=== PATIENT | male | born 1990 | race Caucasian/White ===

== ENCOUNTER 2016-10-02 07:24 | Outpatient (CLI) | payer OTHER | END 2016-10-02 07:25 | disposition home or self-care (01) | DX: M54.9 Dorsalgia, unspecified (principal) ==

== ENCOUNTER 2016-12-13 21:05 | Emergency (ER) | payer MEDICAID ==
[2016-12-13 21:27] LABS: BILIRUBIN,URINE NEGATIVE (NEGATIVE)
[2016-12-13 21:28] LABS: UA CHARGE (STRIP ONLY) YES; UR CULTURE IF IND NOT INDICATED
--- NOTE | 2016-12-13 23:18 | ED Physician Documentation ---
PD HPI MALE - Stated complaint Stated Complaint: MALE - Chief complaint Chief Complaint: General - History obtained from History obtained from: Patient - History of Present Illness Timing - onset: How many days ago (3) Timing - duration: Days (3) Timing - details: Gradual onset Associated symptoms: Dysuria, Genital sore / lesion. No: Discharge PD HPI MALE CONTRIB FACTORS: Sexually active Recently seen: Not recently seen - Additional information Additional information: c/o 3 days of uncomfortable sore on penis and mild discomfort after urinating. He has had a similar lesion on his penis in the past which was successfully treated with "something for jock itch" (per patient). He presents with his girlfriend who has dysuria and is also registered as ED patient (they are both in same room). They have been sexually active, exclusively with each other, for years. Review of Systems Constitutional: denies: Fever : reports: Dysuria. denies: Frequency, Discharge, Testicular pain PD PAST MEDICAL HISTORY - Past Medical History Cardiovascular: None Respiratory: None Neuro: None Endocrine/Autoimmune: None GI: Crohn's disease - Past Surgical History Past Surgical History: No General: Colonoscopy - Present Medications Home Medications: Ambulatory Orders Medication Instructions Recorded Confirmed Clotrimazole 1 film TP BID #1 cream..g. 12/13/16 - Allergies Allergies/Adverse Reactions: Allergies Allergy/AdvReac Type Severity Reaction Status Date / Time hydrocodone [Hydrocodone] Allergy Hives Verified 12/13/16 21:12 - Social History Does the pt smoke?: No Smoking Status: Never smoker Does the pt drink ETOH?: Yes Does the pt have substance abuse?: Yes - Immunizations Immunizations are current?: Yes - POLST Patient has POLST: No PD ED PE NORMAL - Vitals Vital signs reviewed: Yes - General General: Alert and oriented X 3, No acute distress, Well developed/nourished PD ED PE EXPANDED - Male Male : Circumcised, Other (dorsal surface of penile shaft: small, linear fissures and mild erythema ). No: Discharge, Tenderness Results - Vitals Vitals: Vital Signs - 24 hr 12/13/16 12/14/16 21:07 00:05 Temperature 36.7 C 37.1 C Heart Rate 77 77 Respiratory 17 20 Rate Blood Pressure 127/72 111/65 O2 Saturation 100 98 Oxygen O2 Source Room air - Labs Labs: Laboratory Tests 12/13/16 21:20 Urine Color YELLOW Urine Clarity CLEAR Urine pH 7.0 Ur Specific [place] 1.015 Urine Protein NEGATIVE Urine Glucose (UA) NEGATIVE Urine Ketones NEGATIVE Urine Occult Blood NEGATIVE Urine Nitrite NEGATIVE Urine Bilirubin NEGATIVE Urine Urobilinogen 0.2 (NORMAL) Ur Leukocyte Esterase NEGATIVE Ur Microscopic Review NOT INDICATED Urine Culture Comments NOT INDICATED PD MEDICAL DECISION MAKING - ED course Complexity details: considered differential, d/w patient Departure - Departure Disposition: 01 Home, Self Care Clinical Impression: Tinea cruris Condition: Good Instructions: ED [place] Infec Fungal Follow-Up: Alayna Whitlock MD [Primary Care Provider] - Prescriptions: Clotrimazole 1 film TP BID #1 cream..g. Discharge Date/Time: 12/14/16 00:15
[2016-12-14 00:13] VITALS: BP 111/65
== END 2016-12-14 00:15 | disposition home or self-care (01) ==
LOC: ED 21:05
DX: B35.6 Tinea cruris (principal)
CPT/HCPCS: 81001; 81003; 87086; 87491; 87591; 99283

== ENCOUNTER 2016-12-21 00:45 | Emergency (ER) | payer MEDICAID | END 2016-12-21 02:43 | disposition home or self-care (01) | DX: J02.9 Acute pharyngitis, unspecified (principal); K50.90 Crohn's disease, unspecified, without complications ==

== ENCOUNTER 2017-04-20 21:16 | Emergency (ER) | payer MEDICAID ==
[2017-04-20 21:25] VITALS: BP 121/74
[2017-04-20] MEDS ORDERED: cefTRIAXone 1 GM VIAL IM STA (21:34)
[2017-04-20] MEDS ORDERED: TETANUS/DIPHTHERIA/PERTUSSIS 0.5 ML SYRINGE IM ONE (21:43)
[2017-04-20] MEDS ORDERED: cefTRIAXone 1 GM VIAL ONE (21:44)
[2017-04-20] MEDS ORDERED: LIDOCAINE 1% 2 ML VIAL ONE (21:44)
--- NOTE | 2017-04-20 21:45 | ED Physician Documentation ---
PD HPI ANIMAL BITE - Stated complaint Stated Complaint: CAT BITE RT FINGER - Chief complaint Chief Complaint: Wound - History obtained from History obtained from: Patient, Family - History of Present Illness Location of injury(ies): Right hand Details of the event: Cat, Wild animal, Immunization unknown Timing - onset: Enter time (1229), Today Timing - duration: Hours Timing - details: Abrupt onset, Still present Improved by: Rest Worsened by: Moving, Palpating Associated symptoms: Swelling, Discolored. No: Weakness, Numbness Similar symptoms before: Has not had sx before Recently seen: Not recently seen - Additional information Additional information: 26-year-old male with history of Crohn's disease who is not on a biologic has been bit by a feral cat today in the right hand. He has now some swelling and erythema and increased pain in the hand. Review of Systems Constitutional: denies: Fever Eyes: denies: Decreased vision Nose: denies: Congestion Respiratory: denies: Dyspnea GI: denies: Vomiting Musculoskeletal: reports: Extremity pain, Extremity swelling. denies: Neck pain , Back pain Neurologic: denies: Generalized weakness, Focal weakness, Numbness PD PAST MEDICAL HISTORY - Past Medical History Cardiovascular: None Respiratory: None Neuro: None Endocrine/Autoimmune: None GI: Crohn's disease : None HEENT: None Psych: None Musculoskeletal: None Derm: None - Past Surgical History Past Surgical History: No General: Colonoscopy - Present Medications Home Medications: Ambulatory Orders Medication Instructions Recorded Confirmed Clotrimazole 1 film TP BID #1 cream..g. 12/13/16 Amox/Clav 875/125 [Augmentin] 1 each PO Q12H #14 tablet 04/20/17 - Allergies Allergies/Adverse Reactions: Allergies Allergy/AdvReac Type Severity Reaction Status Date / Time hydrocodone [Hydrocodone] Allergy Emesis Verified 04/20/17 21:25 - Social History Does the pt smoke?: No Smoking Status: Never smoker Does the pt drink ETOH?: Yes Does the pt have substance abuse?: Yes - Immunizations Immunizations are current?: Yes - POLST Patient has POLST: No PD ED PE NORMAL - Vitals Vital signs reviewed: Yes (Normal) - General General: No acute distress, Well developed/nourished - HEENT HEENT: Atraumatic, PERRL - Respiratory Respiratory: No respiratory distress - Derm Derm: Normal color, Warm and dry, No rash - Extremities Extremities: Other (There are puncture wounds to the right hand over the webspace of the first and second digits. There is erythema and swelling associated with this and no lymphangitic streaking and no erythema past the dorsum of the hand.) - Neuro Neuro: No motor deficit, No sensory deficit - Psych Psych: Normal mood, Normal affect Results - Vitals Vitals: Vital Signs - 24 hr 04/20/17 21:22 Temperature 36.8 C Heart Rate 82 Respiratory 16 Rate Blood Pressure 121/74 O2 Saturation 99 Oxygen O2 Source Room air PD MEDICAL DECISION MAKING - ED course Complexity details: reviewed old records, considered differential, d/w patient, d/w family ED course: 26-year-old male with a cat bite from a feral cat appears to have evidence of an early infection. He is treated aggressively with 1 g of Rocephin intramuscularly and we will put him on some Augmentin. Departure - Departure Disposition: 01 Home, Self Care Clinical Impression: Infected cat bite Qualifiers: Encounter type: initial encounter Qualified Code(s): W55.01XA - Bitten by cat, initial encounter Condition: Stable Instructions: ED Bite Cat Follow-Up: Alayna Whitlock MD [Primary Care Provider] - Prescriptions: Amox/Clav 875/125 [Augmentin] 1 each PO Q12H #14 tablet
[2017-04-20] MEDS ORDERED: TETANUS/DIPHT/PERTUSS (PED) 0.5 ML VIAL IM ONE (21:54)
== END 2017-04-20 22:03 | disposition home or self-care (01) ==
LOC: ED 21:16
DX: S61.451A Open bite of right hand, initial encounter (principal); L08.9 Local infection of the skin and subcutaneous tissue, unspecified; W55.01XA Bitten by cat, initial encounter; Z23 Encounter for immunization
CPT/HCPCS: 90471; 96372; 99283

== ENCOUNTER 2017-06-26 01:45 | Outpatient (CLI) | payer OTHER, MEDICAID | END 2017-06-26 01:46 | disposition EMS.NT | LOC: EMS 01:45 | PROVIDERS: ATTEND Surgery | DX: S09.93XA Unspecified injury of face, initial encounter (principal); Y04.2XXA Assault by strike against or bumped into by another person, initial encounter; Y92.414 Local residential or business street as the place of occurrence of the external cause ==

== ENCOUNTER 2017-06-26 02:50 | Emergency (ER) | payer MEDICAID, OTHER ==
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
[2017-06-26 03:51] VITALS: BP 104/70
== END 2017-06-26 03:52 | disposition home or self-care (01) ==
LOC: ED 02:50
DX: S09.22XA Traumatic rupture of left ear drum, initial encounter (principal); S00.01XA Abrasion of scalp, initial encounter; S01.511A Laceration without foreign body of lip, initial encounter; Y04.2XXA Assault by strike against or bumped into by another person, initial encounter; Y92.039 Unspecified place in apartment as the place of occurrence of the external cause; K50.90 Crohn's disease, unspecified, without complications
CPT/HCPCS: 70450; 99283

== ENCOUNTER 2017-09-23 23:05 | Emergency (ER) | payer MEDICAID, OTHER ==
--- NOTE | 2017-09-23 23:40 | ED Physician Documentation ---
PD HPI HEAD INJURY - Stated complaint Stated Complaint: HEAD LAC - Chief complaint Chief Complaint: Laceration - History of Present Illness Mechanism of head injury: Fell Where head injury occurred: Home Timing - onset: Today Location of injury: Right, Front Quality of pain: Pain, Aching Associated symptoms: No: LOC, Amnesia Symptoms worsen with: Palpation, Movement Similar symptoms before: Has not had sx before Recently seen: Not recently seen - Additional information Additional information: Patient is a 26 year old male who is presenting to the emergency department for head laceration. patient states that he tripped over his dogs in his kitchen hitting his head on the counter. patient denies any LOC. Review of Systems Ten Systems: 10 systems reviewed and negative GI: denies: Nausea, Vomiting Musculoskeletal: denies: Neck pain Neurologic: reports: Head injury. denies: Headache, LOC PD PAST MEDICAL HISTORY - Past Medical History Past Medical History: Yes Cardiovascular: None Respiratory: None Neuro: None Endocrine/Autoimmune: None GI: Crohn's disease : None HEENT: None Psych: None Musculoskeletal: None Derm: None Other Past Medical History: Born with 1 kidney - Past Surgical History Past Surgical History: No General: Colonoscopy - Present Medications Home Medications: Ambulatory Orders Medication Instructions Recorded Confirmed No Known Home Medications [No 06/26/17 09/23/17 Known Home Medications] - Allergies Allergies/Adverse Reactions: Allergies Allergy/AdvReac Type Severity Reaction Status Date / Time hydrocodone [Hydrocodone] Allergy Emesis Verified 09/23/17 23:11 - Social History Does the pt smoke?: No Smoking Status: Never smoker Does the pt drink ETOH?: Yes Does the pt have substance abuse?: Yes - Immunizations Immunizations are current?: Yes - POLST Patient has POLST: No PD ED PE NORMAL - Vitals Vital signs reviewed: Yes - General General: Alert and oriented X 3 - HEENT HEENT: PERRL, Dentition benign - Neck Neck: No bony TTP - Cardiac Cardiac: RRR - Respiratory Respiratory: No respiratory distress - Abdomen Abdomen: Non distended - Derm Derm: Normal color - Extremities Extremities: No deformity - Neuro Neuro: Alert and oriented X 3, No motor deficit, Normal speech Eye Opening: Spontaneous Motor: Obeys Commands Verbal: Oriented GCS Score: 15 PD ED PE EXPANDED - HEENT HEENT: Head injury (2.5 cm laceration on right anterior forehead) Results - Vitals Vitals: Vital Signs - 24 hr 09/23/17 09/24/17 23:09 00:00 Temperature 36.5 C Heart Rate 83 80 Respiratory 16 19 Rate Blood Pressure 148/90 H 138/88 H O2 Saturation 97 99 Oxygen O2 Source Room air Procedures - Laceration (location) forehead Length in cm: 2.5 Wound type: Linear Wound Preparation: Chlorhexadine, Irrigated copiously NS Skin layer closure: Dermabond, Steri strips Other: No complications, Tetanus UTD Complexity: Simple PD MEDICAL DECISION MAKING - ED course Complexity details: reviewed old records, reviewed results, re-evaluated patient , considered differential, d/w patient ED course: patient was seen and examined at bedside. patient was in no distress. Patient had no loc or concussive symptoms. Patient's wound was cleaned and repaired as described above. Patient required no further work up and was stable for discharge with outpatient follow up. Departure - Departure Disposition: 01 Home, Self Care Clinical Impression: Laceration Condition: Good Instructions: ED Laceration Facial Sutr Tape Follow-Up: Alayna Whitlock MD [Primary Care Provider] - As Needed Comments: Your symptoms today are being caused by a head laceration. it was repaired with glue and steri strips. You should keep the area clean and dry. You should replace the steri strip if one falls off in the next 3-4 days. You can take motrin or tylenol as needed for pain. You should follow up with your doctor for wound check for any signs of infection. Discharge Date/Time: 09/24/17 00:02
[2017-09-24 00:08] VITALS: BP 138/88
== END 2017-09-24 00:02 | disposition home or self-care (01) ==
LOC: ED 23:05
DX: S01.81XA Laceration without foreign body of other part of head, initial encounter (principal); W01.0XXA Fall on same level from slipping, tripping and stumbling without subsequent striking against object, initial encounter; W22.09XA Striking against other stationary object, initial encounter; Y92.000 Kitchen of unspecified non-institutional (private) residence as the place of occurrence of the external cause
CPT/HCPCS: 12011; 99283

== ENCOUNTER 2017-10-24 19:53 | Emergency (ER) | payer MEDICAID ==
[2017-10-24 20:07] VITALS: BP 133/81
== END 2017-10-24 22:04 | disposition left against medical advice (07) ==
LOC: ED 19:53
DX: Z53.21 Procedure and treatment not carried out due to patient leaving prior to being seen by health care provider (principal)

== ENCOUNTER 2017-10-28 15:16 | Outpatient (CLI) | payer MEDICAID ==
[2017-10-28 18:50] LABS: BASOPHILS % (AUTO) 0.6 %; EOSINOPHILS # (AUTO) 0.1 10^3/uL (0.0-0.7); EOSINOPHILS % (AUTO) 1.3 %; HGB - HEMOGLOBIN 14.9 g/dL (14.0-18.0); LYMPHOCYTES # (AUTO) 2.2 10^3/uL (1.5-3.5); LYMPHOCYTES % (AUTO) 26.7 %; MEAN CORPUSCULAR HEMOGLOBIN 28.9 pg (27.0-31.0); MEAN CORPUSCULAR HGB CONC 33.1 g/dL (32.0-36.0); MEAN CORPUSCULAR VOLUME 87.6 fL (80.0-94.0); MEAN PLATELET VOLUME 8.1 fL (7.4-11.4); MONOCYTES # (AUTO) 0.5 10^3/uL (0.0-1.0); MONOCYTES % (AUTO) 6.4 %; NEUTROPHILS # (AUTO) 5.3 10^3/uL (1.5-6.6); PLT - PLATELET COUNT 259 10^3/uL (130-450); RED BLOOD COUNT 5.16 10^6/uL (4.70-6.10); RED CELL DISTRIBUTION WIDTH 13.2 % (12.0-15.0); WHITE BLOOD COUNT 8.2 x10^3/uL (4.8-10.8)
[2017-10-28 19:31] LABS: ALBUMIN 4.5 g/dL (3.2-5.5); ALBUMIN/GLOBULIN RATIO 1.7 (1.0-2.2); ALKALINE PHOSPHATASE 59 IU/L (42-121); ALT ALANINE AMINOTRANSFERASE 36 IU/L (10-60); AST ASPARTATE AMINOTRANSFERASE 24 IU/L (10-42); BILIRUBIN,TOTAL 0.6 mg/dL (0.2-1.0); BUN - BLOOD UREA NITROGEN 15 mg/dL (6-20); CALCIUM 9.6 mg/dL (8.5-10.3); CARBON DIOXIDE - CO2 25 mmol/L (21-32); CHLORIDE 105 mmol/L (101-111); CHOL/HDL RATIO 5.5 (<5.0); CHOLESTEROL 216 mg/dL; GFR - MDRD 89 (>89); GLUCOSE 95 mg/dL (70-100); HDL CHOLESTEROL 39 mg/dL; LDL CHOLESTEROL,CALCULATED 131 mg/dL; LDL/HDL RATIO 3.4 (<3.6); SODIUM 137 mmol/L (135-145); TOTAL PROTEIN 7.2 g/dL (6.7-8.2); VLDL CHOLESTEROL 46 mg/dL
[2017-10-28 19:40] LABS: HB2 TOTAL 16.9 g/dL; HEMOGLOBIN A1C 0.53 g/dL
== END 2017-10-28 15:17 ==
LOC: LAB.WCP 15:16
PROVIDERS: ATTEND Family Medicine
DX: Z00.00 Encounter for general adult medical examination without abnormal findings (principal); K50.90 Crohn's disease, unspecified, without complications
CPT/HCPCS: 36415; 80053; 80061; 83036; 83721; 84443; 85025

== ENCOUNTER 2017-12-09 05:49 | Emergency (ER) | payer MEDICAID ==
--- NOTE | 2017-12-09 06:27 | ED Physician Documentation ---
PD HPI BACK PAIN - Stated complaint Stated Complaint: BACK PX - Chief complaint Chief Complaint: Back Pain - History obtained from History obtained from: Patient - History of Present Illness Timing - onset: How many days ago (4) Timing - duration: Days (4) Timing - details: Abrupt onset Pain level max: 8 Pain level now: 3 Location: Lower, Left Quality: Pain, Spasm Associated symptoms: No: Fever, Weakness, Numbness, Incontinent of urine, Unable to urinate, Incontinent of stool Improves with: Rest Worsened by: Movement Similar symptoms before: Has not had sx before Recently seen: Not recently seen - Additional information Additional information: sudden onset right low back pain 4 days ago while gardening; no specific injury , although the sudden onset was associated with a bending motion. The pain has been episodic since then, and this morning, while getting ready for work, it was again exacerbated when bending forward. Review of Systems Constitutional: denies: Fever : denies: Unable to Void, Incontinent Musculoskeletal: reports: Back pain Neurologic: denies: Focal weakness, Numbness PD PAST MEDICAL HISTORY - Past Medical History Past Medical History: Yes Cardiovascular: None Respiratory: None Endocrine/Autoimmune: None GI: Crohn's disease : None HEENT: None Psych: None Musculoskeletal: None Derm: None Other Past Medical History: Born with 1 kidney - Past Surgical History Past Surgical History: No General: Colonoscopy - Present Medications Home Medications: Ambulatory Orders Medication Instructions Recorded Confirmed diazePAM [Valium] 5 mg PO TID PRN #14 tablet 12/09/17 traMADol [Ultram] 50 mg PO Q6H PRN #14 tablet 12/09/17 - Allergies Allergies/Adverse Reactions: Allergies Allergy/AdvReac Type Severity Reaction Status Date / Time hydrocodone [Hydrocodone] Allergy Emesis Verified 12/09/17 05:55 - Social History Does the pt smoke?: No Smoking Status: Never smoker Does the pt drink ETOH?: Yes Does the pt have substance abuse?: Yes - Immunizations Immunizations are current?: Yes - POLST Patient has POLST: No PD ED PE NORMAL - Vitals Vital signs reviewed: Yes - General General: Alert and oriented X 3, No acute distress, Well developed/nourished - Abdomen Abdomen: Soft, Non tender - Back Back: No CVA TTP, No spinal TTP - Extremities Extremities: Normal ROM s pain, No edema - Neuro Neuro: No motor deficit, No sensory deficit, Other (2+/4 bilateral patellar DTR) Eye Opening: Spontaneous Motor: Obeys Commands Verbal: Oriented GCS Score: 15 Results - Vitals Vitals: Vital Signs - 24 hr 12/09/17 12/09/17 05:51 07:27 Temperature 36.5 C Heart Rate 70 61 Respiratory 17 16 Rate Blood Pressure 119/71 120/73 O2 Saturation 97 100 Oxygen O2 Source Room air PD MEDICAL DECISION MAKING - ED course Complexity details: considered differential, d/w patient - Sepsis Event Vital Signs: Vital Signs - 24 hr 12/09/17 12/09/17 05:51 07:27 Temperature 36.5 C Heart Rate 70 61 Respiratory 17 16 Rate Blood Pressure 119/71 120/73 O2 Saturation 97 100 Oxygen O2 Source Room air Departure - Departure Disposition: 01 Home, Self Care Clinical Impression: Lumbar strain Qualifiers: Encounter type: initial encounter Qualified Code(s): S39.012A - Strain of muscle, fascia and tendon of lower back, initial encounter Condition: Good Instructions: ED Sprain Strain Lumbar Follow-Up: [facility] [Provider Group] [facility] [Provider Group] Prescriptions: diazePAM [Valium] 5 mg PO TID PRN #14 tablet PRN Reason: Spasms traMADol [Ultram] 50 mg PO Q6H PRN #14 tablet PRN Reason: Pain Forms: Activity restrictions Discharge Date/Time: 12/09/17 07:28
[2017-12-09] MEDS ORDERED: oxyCODONE 5 MG TABLET PO STA (07:06)
[2017-12-09] MEDS ORDERED: diazePAM 5 MG TABLET PO STA ×2 (07:06→07:12)
[2017-12-09] MEDS ORDERED: traMADol 50 MG TABLET PO STA (07:12)
[2017-12-09 07:28] VITALS: BP 120/73
== END 2017-12-09 07:28 | disposition home or self-care (01) ==
LOC: ED 05:49
DX: S39.012A Strain of muscle, fascia and tendon of lower back, initial encounter (principal); X50.1XXA Overexertion from prolonged static or awkward postures, initial encounter; Y93.H2 Activity, gardening and landscaping; Y92.007 Garden or yard of unspecified non-institutional (private) residence as the place of occurrence of the external cause; K50.90 Crohn's disease, unspecified, without complications; Q60.0 Renal agenesis, unilateral
CPT/HCPCS: 99283

== ENCOUNTER 2018-01-05 22:22 | Emergency (ER) | payer MEDICAID ==
[2018-01-05] MEDS: ALBUTEROL NEB 2.5 MG/3 ML INH STA (23:39)
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
[2018-01-06 00:27] VITALS: BP 140/76
== END 2018-01-06 00:26 | disposition home or self-care (01) ==
LOC: ED 22:22
DX: R06.00 Dyspnea, unspecified (principal)
CPT/HCPCS: 94640; 99283

== ENCOUNTER 2018-08-10 12:58 | Emergency (ER) | payer MEDICAID ==
[2018-08-10] MEDS ORDERED: SUMAtriptan 6 MG/0.5 ML VIAL SUBQ STA (13:38)
[2018-08-10] MEDS ORDERED: BUTALB/ACETAM/CAFF 50/325/40MG TABLET PO STA (13:38)
--- NOTE | 2018-08-10 13:43 | ED Physician Documentation ---
PD HPI HEADACHE - Stated complaint Stated Complaint: DIZZY/HEADACHE - Chief complaint Chief Complaint: Neuro - History obtained from History obtained from: Patient - History of Present Illness Timing - onset: How many days ago (2) Timing - onset during: Rest Timing - duration: Days (2) Timing - details: Gradual onset Pain level max: 8 Pain level now: 6 Location: Global Quality: Throbbing, Aching Associated symptoms: Nausea. No: Fever, Stiff neck, Vomiting, Weakness, Numbness, Syncope, Seizure, Eye pain, Vision changes Improved by: Rest, Dark room Worsened by: Light, Noise Contributing factors: No: Anticoagulated, Possible carbon monoxide, Hypertension, Recent illness, Trauma Similar symptoms before: Diagnosis (has had similar headaches before) Recently seen: Not recently seen Review of Systems Constitutional: denies: Fever, Chills Respiratory: denies: Cough GI: denies: Vomiting Skin: denies: Rash Musculoskeletal: denies: Neck pain, Back pain Neurologic: denies: Seizure, Confused, Altered mental status, Head injury, LOC PD PAST MEDICAL HISTORY - Past Medical History Cardiovascular: None Respiratory: None Endocrine/Autoimmune: None GI: Crohn's disease : None HEENT: None Psych: None Musculoskeletal: None Derm: None Other Past Medical History: one kidney since - Past Surgical History Past Surgical History: No General: Colonoscopy - Present Medications Home Medications: Ambulatory Orders Medication Instructions Recorded Confirmed No Known Home Medications 08/10/18 08/10/18 - Allergies Allergies/Adverse Reactions: Allergies Allergy/AdvReac Type Severity Reaction Status Date / Time hydrocodone [Hydrocodone] Allergy Emesis Verified 08/10/18 13:08 - Social History Does the pt smoke?: No Smoking Status: Never smoker Does the pt drink ETOH?: Yes Does the pt have substance abuse?: Yes - Immunizations Immunizations are current?: Yes - POLST Patient has POLST: No PD ED PE NORMAL - Vitals Vital signs reviewed: Yes - General General: Alert and oriented X 3, No acute distress, Well developed/nourished - HEENT HEENT: Atraumatic, PERRL, EOMI, Moist mucous membranes - Neck Neck: Supple, no meningeal sign - Cardiac Cardiac: RRR, Strong equal pulses - Respiratory Respiratory: No respiratory distress, Clear bilaterally - Abdomen Abdomen: Soft, Non tender, Non distended - Derm Derm: Warm and dry - Extremities Extremities: No deformity - Neuro Neuro: Alert and oriented X 3, pillowcase sewer 2-12 intact, No motor deficit, No sensory deficit, Normal speech, Other (Normal cerebellar tests) - Psych Psych: Normal mood, Normal affect Results - Vitals Vitals: Vital Signs - 24 hr 08/10/18 08/10/18 13:06 14:26 Temperature 36.8 C Heart Rate 79 77 Respiratory 18 14 Rate Blood Pressure 128/79 139/95 H O2 Saturation 97 98 Oxygen O2 Source Room air PD MEDICAL DECISION MAKING - ED course Complexity details: re-evaluated patient, considered differential, d/w patient, d/w family ED course: Patient with a headache today. Appears consistent with a migraine headache. Feels better after Imitrex and Fioricet. We will have him follow-up with his doctor for further care. No evidence of tumor, subarachnoid hemorrhage. Patient counseled regarding signs and symptoms for which I believe and urgent re-evaluation would be necessary. Patient with good understanding of and agreement to plan and is comfortable going home at this time This document was made in part using voice recognition software. While efforts are made to proofread this document, sound alike and grammatical errors may occur. Departure - Departure Disposition: 01 Home, Self Care Clinical Impression: Headache Qualifiers: Headache type: unspecified Headache chronicity pattern: acute headache Intractability: not intractable Qualified Code(s): R51 - Headache Condition: Stable Instructions: ED Cephalgia Unspecified Follow-Up: Alayna Whitlock MD [Primary Care Provider] - Within 1 week Comments: Return if you worsen. This should continue to improve over the day. Forms: Activity restrictions Discharge Date/Time: 08/10/18 14:28
[2018-08-10 14:28] VITALS: BP 139/95
== END 2018-08-10 14:28 | disposition home or self-care (01) ==
LOC: ED 12:58
DX: R51 Headache (principal)
CPT/HCPCS: 96372; 99283; A9270

== ENCOUNTER 2018-12-12 22:33 | Emergency (ER) | payer MEDICAID ==
[2018-12-12 22:41] VITALS: BP 134/91
--- NOTE | 2018-12-12 22:42 | ED Physician Documentation ---
PD HPI NVD - Stated complaint Stated Complaint: ABD PX/DIAH - Chief complaint Chief Complaint: Abd Pain - History obtained from History obtained from: Patient - History of Present Illness Timing - onset: Yesterday Timing - details: Gradual onset, Waxing and waning Pain level max: 0 Pain level now: 0 Associated symptoms: No: Fever, Abdominal pain Similar symptoms before: Has not had sx before Recently seen: Not recently seen - Additonal information Additional information: c/o nausea without vomiting, diarrhea since yesterday shortly after eating rabbit that had been cooked by a friend. Patient presents with another person who has same symptoms and ate same meal at same time Review of Systems Constitutional: denies: Fever GI: reports: Nausea. denies: Abdominal Pain, Vomiting, Diarrhea : denies: Dysuria, Frequency PD PAST MEDICAL HISTORY - Past Medical History Cardiovascular: None Respiratory: None Endocrine/Autoimmune: None GI: Crohn's disease : None HEENT: None Psych: None Musculoskeletal: None Derm: None - Past Surgical History Past Surgical History: No General: Colonoscopy - Present Medications Home Medications: Ambulatory Orders Medication Instructions Recorded Confirmed Diphenoxylate/Atropine [Lomotil] 1 each PO QID PRN #10 tablet 12/12/18 Ondansetron Odt [Zofran] 4 mg TL Q6H PRN #10 tablet 12/12/18 - Allergies Allergies/Adverse Reactions: Allergies Allergy/AdvReac Type Severity Reaction Status Date / Time hydrocodone [Hydrocodone] Allergy Emesis Verified 08/10/18 13:08 - Social History Does the pt smoke?: No Smoking Status: Never smoker Does the pt drink ETOH?: Yes Does the pt have substance abuse?: Yes - Immunizations Immunizations are current?: Yes - POLST Patient has POLST: No PD ED PE NORMAL - Vitals Vital signs reviewed: Yes - General General: Alert and oriented X 3, No acute distress, Well developed/nourished - HEENT HEENT: Moist mucous membranes - Cardiac Cardiac: RRR, No murmur - Respiratory Respiratory: No respiratory distress, Clear bilaterally - Abdomen Abdomen: Soft, Non tender - Back Back: No CVA TTP Results - Vitals Vitals: Vital Signs - 24 hr 12/12/18 22:39 Temperature 36.6 C Heart Rate 79 Respiratory 16 Rate Blood Pressure 134/91 H O2 Saturation 98 Oxygen O2 Source Room air PD MEDICAL DECISION MAKING - ED course Complexity details: reviewed results, re-evaluated patient, considered differential, d/w patient Departure - Departure Disposition: 01 Home, Self Care Clinical Impression: Diarrhea Qualifiers: Diarrhea type: unspecified type Qualified Code(s): R19.7 - Diarrhea, unspecified Condition: Good Health Concerns: diarrhea Plan of Treatment: prescription for antidiarrheal and antinauseant Care Goals: Control and subsequent resolution of symptoms Assessment: See diagnosis Instructions: ED Vomiting Diarrhea Nonspecific Ad Follow-Up: Alayna Whitlock MD [Primary Care Provider] - Prescriptions: Diphenoxylate/Atropine [Lomotil] 1 each PO QID PRN #10 tablet PRN Reason: Diarrhea Ondansetron Odt [Zofran] 4 mg TL Q6H PRN #10 tablet PRN Reason: Nausea / Vomiting Forms: Activity restrictions Discharge Date/Time: 12/12/18 23:22
[2018-12-12] MEDS ORDERED: DIPHENOX/ATROPINE 2.5/0.025 MG TABLET PO STA (23:09)
[2018-12-12] MEDS ORDERED: ONDANSETRON ODT 4 MG TABLET TL STA (23:10)
== END 2018-12-12 23:22 | disposition home or self-care (01) ==
LOC: ED 22:33
DX: R19.7 Diarrhea, unspecified (principal); Z87.19 Personal history of other diseases of the digestive system
CPT/HCPCS: 99283; A9270; Q0162

== ENCOUNTER 2019-01-12 04:44 | Emergency (ER) | payer MEDICAID ==
[2019-01-12 04:56] VITALS: BP 123/88
--- NOTE | 2019-01-12 04:56 | ED Physician Documentation ---
PD HPI LOWER EXT INJURY - Stated complaint Stated Complaint: L FOOT/L KNEE INJ - Chief complaint Chief Complaint: Ext Problem - History obtained from History obtained from: Patient - History of Present Illness PD HPI LOW EXT INJURY LOCATION: Left, Knee Type of injury: Other (He was playing basketball last evening and did not have any abrupt injury but after playing noted his foot and need to start hurting. They increased some overnight and in the evening. This morning when he woke up and started walking he had considerable pain in the left medial arch of the foot and was unable to support it well.). No: Fall, Twist Where injury occurred: Other (playing basketball) Timing - onset: How many days ago (1) Timing - details: Gradual onset Worsened by: Moving, Palpating, Other (walking) Associated symptoms: No: Weakness, Numbness, Swelling Similar symptoms before: Has not had sx before Review of Systems Skin: denies: Rash, Lesions Musculoskeletal: denies: Neck pain, Back pain Neurologic: denies: Focal weakness, Numbness PD PAST MEDICAL HISTORY - Past Medical History Cardiovascular: None Respiratory: None Neuro: None Endocrine/Autoimmune: None GI: Crohn's disease : None HEENT: None Psych: None Musculoskeletal: None Derm: None - Past Surgical History Past Surgical History: No General: Colonoscopy - Present Medications Home Medications: Ambulatory Orders Medication Instructions Recorded Confirmed Oxycodone HCl/Acetaminophen 1 - 2 each PO Q6H PRN #14 tablet 01/12/19 [Percocet 5-325 mg Tablet] dexAMETHasone [Decadron] 4 mg PO DAILY #5 tablet 01/12/19 - Allergies Allergies/Adverse Reactions: Allergies Allergy/AdvReac Type Severity Reaction Status Date / Time hydrocodone [Hydrocodone] Allergy Emesis Verified 01/12/19 04:56 - Social History Does the pt smoke?: No Smoking Status: Never smoker Does the pt drink ETOH?: Yes Does the pt have substance abuse?: Yes - Immunizations Immunizations are current?: Yes - POLST Patient has POLST: No PD ED PE NORMAL - Vitals Vital signs reviewed: Yes - General General: Well developed/nourished - Back Back: No spinal TTP - Derm Derm: Normal color, Warm and dry, No rash - Extremities Extremities: Other (The patient's medial knee shows some mild tenderness without any laxity. There is no effusion. There is some slight discomfort with valgus stress most likely consistent with some an MCL strain. The left medial arch of the foot shows tenderness on the plantar aspect. There is no redness nor swelling. He is not tender at the base of the toe. There is a little bit of tenderness along the lateral aspect of the foot overlying the first metatarsal. No obvious deformity. The heel itself and the Achilles are not tender.) - Neuro Neuro: No motor deficit, No sensory deficit Results - Vitals Vitals: Vital Signs - 24 hr 01/12/19 04:45 Temperature 36.0 C L Heart Rate 75 Respiratory 16 Rate Blood Pressure 123/88 H O2 Saturation 98 Oxygen O2 Source Room air - Rads (name of study) left foot Radiology: Prelim report reviewed, EMP read contemporaneously, See rad report PD MEDICAL DECISION MAKING - ED course Complexity details: considered differential (The patient had not played basketball in a while and I think he just basically got sore in the knee and the foot. It seems like some plantar fasciitis. We did do an x-ray to ensure no stress fracture. He is having pain with walking so we will can give him crutches for the short-term. He is given a work note for today and tomorrow. He does have history of Crohn's disease and also some renal insufficiency so it shows steroid anti-inflammatories as opposed to NSAIDs. Mostly just time should get this better.), d/w patient Departure - Departure Disposition: 01 Home, Self Care Clinical Impression: Plantar fasciitis, left Knee strain Qualifiers: Encounter type: initial encounter Laterality: left Qualified Code(s): S86.912A - Strain of unspecified muscle(s) and tendon(s) at lower leg level, left leg, initial encounter Condition: Stable Record reviewed to determine appropriate education?: Yes Instructions: ED Plantar Fasciitis Follow-Up: Alayna Whitlock MD [Primary Care Provider] - Prescriptions: dexAMETHasone [Decadron] 4 mg PO DAILY #5 tablet Oxycodone HCl/Acetaminophen [Percocet 5-325 mg Tablet] 1 - 2 each PO Q6H PRN #14 tablet PRN Reason: pain Comments: Crutches with diminished or no weightbearing for today tomorrow and as needed. This sounds like some inflammation of the fascia at the bottom of the foot and should improve over a few days and particularly little faster with some anti- inflammatories. Continue usual medications. Had Decadron steroid for inflammation daily for a few days. Use Tylenol or oxycodone as needed for pain. Recheck if not improving over the next few days. Forms: Activity restrictions Discharge Date/Time: 01/12/19 05:55
[2019-01-12] MEDS ORDERED: oxyCODONE 5 MG TABLET PO STA (05:08)
[2019-01-12] MEDS ORDERED: DEXAMETHASONE 10 MG/ML VIAL PO STA (05:08)
[2019-01-12] MEDS ORDERED: CHERRY SYRUP 10 ML UDC PO ONE (05:08)
[2019-01-12] MEDS ORDERED: oxyCODONE/ACET 5/325 Prepack 4 PO STA (05:12)
--- NOTE | 2019-01-12 05:58 | XRAY Report ---
Reason: foot pain after basketball last evening Procedure Date: 01/12/2019 Accession Number: [id number] / [id number] Procedure: XR - Foot 3 View LT CPT Code: FULL RESULT: EXAM: LEFT FOOT RADIOGRAPHY EXAM DATE: 01/12/2019 05:23 AM. CLINICAL HISTORY: Foot pain after basketball playing yesterday. COMPARISON: None. TECHNIQUE: 3 views. FINDINGS: Bones: No acute displaced fractures or suspicious bony lesion. Joints: No dislocation. Soft Tissues: No significant soft tissue swelling. IMPRESSION: No acute osseous abnormality demonstrated. RADIA
== END 2019-01-12 05:55 | disposition home or self-care (01) ==
LOC: ED 04:44
DX: M72.2 Plantar fascial fibromatosis (principal); S86.812A Strain of other muscle(s) and tendon(s) at lower leg level, left leg, initial encounter; X50.9XXA Other and unspecified overexertion or strenuous movements or postures, initial encounter; Y93.67 Activity, basketball; Y92.310 Basketball court as the place of occurrence of the external cause; N28.9 Disorder of kidney and ureter, unspecified; K50.90 Crohn's disease, unspecified, without complications
CPT/HCPCS: 73630; 99283; 99284; A9270

== ENCOUNTER 2019-02-01 09:49 | Emergency (ER) | payer MEDICAID ==
[2019-02-01 10:05] VITALS: BP 144/79
--- NOTE | 2019-02-01 10:53 | ED Physician Documentation ---
History of Present Illness - Stated complaint Stated Complaint: SHOULDER PX - Chief complaint Chief Complaint: Ext Problem - History obtained from History obtained from: Patient - History of Present Illness Timing: How many weeks ago (3) Pain level max: 7 Pain level now: 5 - Additonal information Additional information: 28-year-old male presents to the emergency department with left shoulder pain for the past 3 weeks. He states it is worse with movement and better with rest. He states he went to [facility] but they would not do any "scans". So he came back here. Has not followed up with anybody in the interim. Review of Systems Constitutional: denies: Fever, Chills GI: denies: Vomiting, Diarrhea Skin: denies: Rash Musculoskeletal: denies: Neck pain, Back pain PD PAST MEDICAL HISTORY - Past Medical History Past Medical History: Yes Cardiovascular: None Respiratory: Asthma Neuro: None Endocrine/Autoimmune: None GI: Crohn's disease : None HEENT: None Psych: None Musculoskeletal: Other Derm: None Other Past Medical History: 1 kidney - Past Surgical History Past Surgical History: Yes General: Colonoscopy - Present Medications Home Medications: Ambulatory Orders Medication Instructions Recorded Confirmed No Known Home Medications 02/01/19 02/01/19 - Allergies Allergies/Adverse Reactions: Allergies Allergy/AdvReac Type Severity Reaction Status Date / Time hydrocodone [Hydrocodone] Allergy Emesis Verified 02/01/19 10:05 - Social History Does the pt smoke?: No Smoking Status: Never smoker Does the pt drink ETOH?: Yes Does the pt have substance abuse?: No - Immunizations Immunizations are current?: Yes - POLST Patient has POLST: No PD ED PE NORMAL - Vitals Vital signs reviewed: Yes - General General: Alert and oriented X 3, No acute distress - HEENT HEENT: Moist mucous membranes - Neck Neck: Supple, no meningeal sign - Derm Derm: Warm and dry - Extremities Extremities: Other (Left shoulder - Tender to palpation over the anterior aspect of the shoulder. Limited range of motion with abduction. Good internal rotation, limited external rotation. Neurovascular intact including axillary nerve. No bony tenderness. No deformity.) - Neuro Neuro: Alert and oriented X 3 Results - Vitals Vitals: Vital Signs - 24 hr 02/01/19 09:56 Temperature 36 C L Heart Rate 66 Respiratory 16 Rate Blood Pressure 144/79 H O2 Saturation 96 Oxygen O2 Source Room air PD MEDICAL DECISION MAKING - ED course Complexity details: considered differential, d/w patient ED course: 28-year-old male with likely continued rotator cuff injury. Will continue stretching at home. We will follow-up with his doctor and orthopedics for further care. Will utilize Motrin and Tylenol as needed for pain. No ind ication for x-rays today. Patient counseled regarding signs and symptoms for which I believe and urgent re-evaluation would be necessary. Patient with good understanding of and agreement to plan and is comfortable going home at this time This document was made in part using voice recognition software. While efforts are made to proofread this document, sound alike and grammatical errors may occur. Departure - Departure Disposition: Home, Self Care Clinical Impression: Left rotator cuff tear Qualifiers: Rotator cuff tear extent: unspecified tear extent Rotator cuff tear trauma status: traumatic Encounter type: initial encounter Qualified Code(s): S46.012A - Strain of muscle(s) and tendon(s) of the rotator cuff of left shoulder, initial encounter Condition: Good Instructions: ED Torn Rotator Cuff Follow-Up: Alayna Whitlock MD [Primary Care Provider] - [facility] [Provider Group] - Within 1 week Comments: You can use Motrin or Tylenol as needed for pain. Follow-up with orthopedics within 1 week for repeat evaluation. Call the office for an appointment. Forms: Activity restrictions Discharge Date/Time: 02/01/19 11:02
== END 2019-02-01 11:02 | disposition home or self-care (01) ==
LOC: ED 09:49
DX: S46.012A Strain of muscle(s) and tendon(s) of the rotator cuff of left shoulder, initial encounter (principal); X58.XXXA Exposure to other specified factors, initial encounter
CPT/HCPCS: 99282

== ENCOUNTER 2019-03-02 14:13 | Emergency (ER) | payer MEDICAID ==
[2019-03-02 14:21] VITALS: BP 142/81
--- NOTE | 2019-03-02 15:14 | ED Physician Documentation ---
PD HPI UPPER EXT INJURY - Stated complaint Stated Complaint: L SHOULDER INJ - Chief complaint Chief Complaint: Ext Problem - History obtained from History obtained from: Patient - History of Present Illness Location: Left, Shoulder Type of injury: Twist Where injury occurred: Work Timing - onset: How many weeks ago (5) Timing - details: Still present Worsened by: Moving Similar symptoms before: Has not had sx before Recently seen: Emergency Dept (one month ago.) - Additonal information Additional information: The patient is a 28-year-old [id number] male who presents with pain in his left shoulder anteriorly. 5 weeks ago he was at work when he caught a box that was falling, injuring his left shoulder. He was seen initially at the emergency department of [facility] in [place], and was told that he had a rotator cuff injury. X-rays were not performed at that time. He then was seen in the emergency department here and the diagnosis of rotator cuff injury was reiterated, and again an x-ray was not performed. He was referred to orthopedic clinic. The patient states he has called twice for an orthopedic clinic follow- up, but has not heard back from the clinic to be able to schedule an appointment. He presents now because of persistent pain in the left shoulder, worse with movement, particularly elevation of his arm. Review of Systems Constitutional: denies: Fever Nose: denies: Congestion Throat: denies: Sore throat Cardiac: denies: Chest pain / pressure Respiratory: denies: Dyspnea, Cough GI: denies: Abdominal Pain, Nausea, Vomiting Skin: denies: Rash Musculoskeletal: reports: Joint pain (Left shoulder.). denies: Neck pain, Back pain Neurologic: denies: Focal weakness, Numbness, Headache PD PAST MEDICAL HISTORY - Past Medical History Cardiovascular: None Respiratory: Asthma Neuro: None Endocrine/Autoimmune: None GI: Crohn's disease : None HEENT: None Psych: None Musculoskeletal: Other Derm: None - Past Surgical History Past Surgical History: Yes General: Colonoscopy - Present Medications Home Medications: Ambulatory Orders Medication Instructions Recorded Confirmed traMADol [Ultram] 50 mg PO Q4-6H #14 tablet 03/02/19 - Allergies Allergies/Adverse Reactions: Allergies Allergy/AdvReac Type Severity Reaction Status Date / Time hydrocodone [Hydrocodone] Allergy Emesis Verified 03/02/19 14:21 - Social History Does the pt smoke?: No Smoking Status: Never smoker Does the pt drink ETOH?: Yes Does the pt have substance abuse?: No - Immunizations Immunizations are current?: Yes - POLST Patient has POLST: No PD ED PE NORMAL - Vitals Vital signs reviewed: Yes (Borderline systolic hypertension initially.) - General General: Alert and oriented X 3, Well developed/nourished - HEENT HEENT: Atraumatic - Neck Neck: Supple, no meningeal sign, No bony TTP, No adenopathy - Cardiac Cardiac: RRR - Respiratory Respiratory: No respiratory distress, Clear bilaterally - Abdomen Abdomen: Soft, Non tender - Back Back: No spinal TTP - Derm Derm: No rash - Extremities Extremities: No deformity, Other (There is tenderness to palpation over the anterior aspect of the right shoulder, exacerbated by elevation, more so with active over passive range of motion. Distal neurovascular is intact.) - Neuro Neuro: Alert and oriented X 3, No motor deficit, No sensory deficit Results - Vitals Vitals: Vital Signs - 24 hr 03/02/19 14:18 Temperature 36.5 C Heart Rate 81 Respiratory 16 Rate Blood Pressure 142/81 H O2 Saturation 96 Oxygen O2 Source Room air - Rads (name of study) left shoulder Radiology: Prelim report reviewed, EMP read contemporaneously, See rad report (No acute osseous or articular abnormality.) PD MEDICAL DECISION MAKING - ED course Complexity details: reviewed old records, reviewed results, d/w patient, d/w [employer] consultant ED course: The patient's presentation is most consistent with rotator cuff injury. Radiographic imaging reveals no acute osseous or articular abnormality. I discussed outpatient follow-up with Dr. Flores, the orthopedic surgeon on-call, and he will leave a message with the office to contact the patient. I discussed with the patient the results of his x-ray, the importance of orthopedic follow- up, as well as potentially worrisome signs or symptoms that should prompt reevaluation in the emergency department. Departure - Departure Disposition: 01 Home, Self Care Clinical Impression: Rotator cuff arthropathy of left shoulder Condition: Stable Instructions: ED Torn Rotator Cuff Follow-Up: Alayna Whitlock MD [Primary Care Provider] - [facility] [Provider Group] Prescriptions: traMADol [Ultram] 50 mg PO Q4-6H #14 tablet Comments: Use your arm sling if it provides comfort. You can use ibuprofen, up to 800 mg 3 times daily for anti-inflammatory effect. Follow-up with orthopedic clinic as soon as possible. Call to schedule an appointment. Return to the emergency department if you develop increasing pain, or otherwise worsening symptoms. Discharge Date/Time: 03/02/19 15:33
--- NOTE | 2019-03-02 15:18 | XRAY Report ---
Reason: left shoulder injury Procedure Date: 03/02/2019 Accession Number: [id number] / [id number] Procedure: XR - Shoulder 3 View LT CPT Code: FULL RESULT: EXAM: LEFT SHOULDER RADIOGRAPHY EXAM DATE: 03/02/2019 03:03 PM. CLINICAL HISTORY: Left shoulder injury. COMPARISON: None. TECHNIQUE: 3 views. FINDINGS: Bones: No acute fracture. Joints: No dislocation or subluxation. No significant degenerative change. Soft tissues: No periarticular calcifications. No focal soft tissue swelling. Visualized portions of the left lung are clear. IMPRESSION: No acute osseous or articular abnormality. RADIA
== END 2019-03-02 15:33 | disposition home or self-care (01) ==
LOC: ED 14:13
DX: M12.512 Traumatic arthropathy, left shoulder (principal); S46.002A Unspecified injury of muscle(s) and tendon(s) of the rotator cuff of left shoulder, initial encounter; X50.1XXS Overexertion from prolonged static or awkward postures, sequela; Y93.89 Activity, other specified; Y99.0 Civilian activity done for income or pay
CPT/HCPCS: 99282; 99283

== ENCOUNTER 2019-03-22 05:20 | Emergency (ER) | payer SELFPAY ==
[2019-03-22 05:31] VITALS: BP 114/81
--- NOTE | 2019-03-22 06:56 | ED Physician Documentation ---
PD HPI URI - Stated complaint Stated Complaint: SORE THROAT/COUGH - Chief complaint Chief Complaint: Resp - History obtained from History obtained from: Patient - History of Present Illness Timing - onset: How many days ago (7) Timing details: Gradual onset Associated symptoms: Ear pain, Nasal congestion, Sore throat, Dry cough. No: Fever Recently seen: Emergency Dept (T+R from this ED last month (unrelated c/o). 8th [facility] ED visit 2019 ([facility] and ED)) Review of Systems Constitutional: reports: Myalgias. denies: Fever Ears: reports: Ear pain Nose: reports: Congestion Throat: reports: Sore throat Respiratory: reports: Cough. 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 - Past Surgical History Past Surgical History: Yes General: Colonoscopy, EGD - Present Medications Home Medications: Ambulatory Orders Medication Instructions Recorded Confirmed No Known Home Medications 03/22/19 03/22/19 - Allergies Allergies/Adverse Reactions: Allergies Allergy/AdvReac Type Severity Reaction Status Date / Time hydrocodone [Hydrocodone] Allergy Emesis Verified 03/22/19 05:31 - Social History Does the pt smoke?: No Smoking Status: Never smoker Does the pt drink ETOH?: Yes Does the pt have substance abuse?: No - Immunizations Immunizations are current?: Yes - POLST Patient has POLST: No PD ED PE NORMAL - Vitals Vital signs reviewed: Yes - General General: Alert and oriented X 3, No acute distress, Well developed/nourished - HEENT HEENT: Moist mucous membranes, Other (mild posterior oropharyngeal erythema) - Neck Neck: Supple, no meningeal sign - Cardiac Cardiac: RRR, No murmur - Respiratory Respiratory: No respiratory distress, Clear bilaterally Results - Vitals Vitals: Vital Signs - 24 hr 03/22/19 05:20 Temperature 36.8 C Heart Rate 72 Respiratory 18 Rate Blood Pressure 114/81 H O2 Saturation 99 Oxygen O2 Source Room air - Labs Labs: Laboratory Tests 03/22/19 05:53 Group A Strep Rapid Negative PD MEDICAL DECISION MAKING - ED course Complexity details: reviewed results, re-evaluated patient, considered differential, d/w patient Departure - Departure Disposition: 01 Home, Self Care Clinical Impression: Pharyngitis Qualifiers: Pharyngitis/tonsillitis etiology: unspecified etiology Qualified Code(s): J02.9 - Acute pharyngitis, unspecified Condition: Good Instructions: ED Pharyngitis Viral Report Pending Follow-Up: Alayna Whitlock MD [Primary Care Provider] - Forms: Activity restrictions Discharge Date/Time: 03/22/19 06:41
== END 2019-03-22 06:41 | disposition home or self-care (01) ==
LOC: ED 05:20
DX: J02.9 Acute pharyngitis, unspecified (principal); J45.909 Unspecified asthma, uncomplicated
CPT/HCPCS: 87070; 87430; 99283